=== PATIENT | female | born 1980 | race Caucasian/White ===

== ENCOUNTER 2019-09-23 07:41 | Emergency (ER) | payer OTHER, SELFPAY ==
[~2019-09-23] VITALS: Ht 165.1 cm; Wt 56.7 kg
[2019-09-23 07:53] VITALS: BP 131/84; Ht 165.1 cm; Wt 56.7 kg
== END 2019-09-23 09:36 | disposition home or self-care (01) ==
LOC: ED 07:41
DX: R07.89 Other chest pain (principal); Z20.828 Contact with and (suspected) exposure to other viral communicable diseases
CPT/HCPCS: Q0092